=== PATIENT | male | born 1995 | race African-American/Black ===

== ENCOUNTER 2021-10-12 20:17 | Emergency (ER) | payer OTHER ==
[~2021-10-12] VITALS: Ht 170.2 cm; Wt 68.0 kg
--- NOTE | 2021-10-12 20:37 | NUR ---
Dr Richey into eval patient.
[2021-10-12] MEDS ORDERED: QUETIAPINE FUMARATE 25 MG TABLET PO ONE (20:45)
[2021-10-12] MEDS ORDERED: ASPIRIN 81 MG TAB.CHEW ONE (21:00)
[2021-10-12] MEDS: LABETALOL HCL 100 MG/20 ML VIAL IV ONE ×2 (21:08→22:54)
[2021-10-12] MEDS ORDERED: QUETIAPINE FUMARATE 200 MG TABLET ONE (21:09)
[2021-10-12] MEDS: ASPIRIN 81 MG TAB.CHEW PO ONE (21:11)
[2021-10-12] MEDS ORDERED: NITROGLYCERIN OINT 1 GM PACKET TP ONE (21:11)
[2021-10-12] MEDS: NITROGLYCERIN OINT 1 GM PACKET TP ONE (21:12)
[2021-10-12] MEDS: QUETIAPINE FUMARATE 200 MG TABLET PO ONE (21:12)
[2021-10-12] MEDS ORDERED: LABETALOL HCL 100 MG/20 ML VIAL ONE (21:13)
[2021-10-12 21:18] LABS: HEMATOCRIT 39.9 % (36.7-47.1); MEAN CORPUSCULAR HEMOGLOBIN 29.1 uug (23.8-33.4); MEAN CORPUSCULAR VOLUME 85.8 fL (73.0-96.2); PLATELET COUNT (AUTO) 271 K/uL (152-348)
[2021-10-12] MEDS: LORAZEPAM 2 MG/1 ML VIAL IV ONE ×2 (21:19→23:12)
[2021-10-12] MEDS ORDERED: LORAZEPAM 2 MG/1 ML VIAL ONE ×2 (21:23→23:16)
[2021-10-12 21:29] LABS: ALANINE AMINOTRANSFERASE 19 U/L (16-63); ALKALINE PHOSPHATASE 42 U/L (50-136); ASPARTATE AMINOTRANSFERASE 12 U/L (15-37); BILIRUBIN,DIRECT < 0.1 mg/dL (0.0-0.2); BILIRUBIN,TOTAL 0.2 mg/dL (0.2-1.0); CARBON DIOXIDE 30 mmol/L (21-32); CHLORIDE 101 mmol/L (98-107); CREATININE 1.1 mg/dL (0.6-1.3); GLUCOSE 120 mg/dL (74-106); POTASSIUM 3.9 mmol/L (3.5-5.1); TOTAL PROTEIN, SERUM 7.8 g/dL (6.4-8.2); UREA NITROGEN, BLOOD 12 mg/dL (7-18)
[2021-10-12] MEDS: METOPROLOL TARTRATE 5 MG/5 ML VIAL IVP ONE (23:34)
[2021-10-12] MEDS ORDERED: METOPROLOL TARTRATE 5 MG/5 ML VIAL IVP ONE (23:41)
[2021-10-13] MEDS ORDERED: QUET100T PO (00:51)
[2021-10-13] MEDS: METOPROLOL TARTRATE 5 MG/5 ML VIAL IVP ONE (00:57)
[2021-10-13] MEDS ORDERED: METOPROLOL TARTRATE 5 MG/5 ML VIAL IVP ONE (01:04)
--- NOTE | 2021-10-13 01:18 | NUR ---
IV removed. Catheter intact and site benign. Pressure and 4x4 gauze applied to site. No bleeding noted.
[2021-10-13 01:25] VITALS: BP 18/66
--- NOTE | 2021-10-13 01:25 | NUR ---
Patient given written and verbal discharge instructions. Patient verbalizes understanding of instructions. Patient is ambulatory with steady gait. Refuses offer of alf placement. Patient given list of available shelters in surrounding area.
== END 2021-10-13 01:26 | disposition home or self-care (01) ==
LOC: ER 20:31
DX: F14.129 Cocaine abuse with intoxication, unspecified (principal); F41.9 Anxiety disorder, unspecified; R07.89 Other chest pain; F20.9 Schizophrenia, unspecified; E78.5 Hyperlipidemia, unspecified; F17.290 Nicotine dependence, other tobacco product, uncomplicated; Z71.6 Tobacco abuse counseling; Z59.00 Homelessness unspecified; Z88.8 Allergy status to other drugs, medicaments and biological substances
CPT/HCPCS: 36415 ×2; 71045; 80048; 80076; 83880; 84484 ×2; 85025; 85379; 93005; 96374; 96375; 96376 ×2; 99285; 99406; J2060 ×2; J3490 ×3; 70030-TC; A4663

== ENCOUNTER 2021-10-13 04:55 | Emergency (ER) | payer OTHER ==
[~2021-10-13 04:55] MED LIST: QUET100T PO
--- NOTE | 2021-10-13 04:59 | NUR ---
Patient was called to be traiged but stated "I don't want to be seen anymore. I am just going to wait till the sun comes up." Patient does not want to be triaged at this time.
--- NOTE | 2021-10-13 05:15 | NUR ---
Patient was asked if he wanted to be traiged or to be seen by [facility] but stated "I just want to wait till the sun comes up and I'll leave. I am just going to sit here in the waiting room."
--- NOTE | 2021-10-13 06:37 | NUR ---
Patient was not seen by ERMD or triaged.
== END 2021-10-13 06:44 | disposition left against medical advice (07) ==
LOC: ER 04:58
DX: Z53.21 Procedure and treatment not carried out due to patient leaving prior to being seen by health care provider (principal)